=== PATIENT | female | born 1970 | race Caucasian/White ===

== ENCOUNTER 2018-10-24 11:49 | Emergency (ER) | payer OTHER ==
[~2018-10-24] VITALS: Ht 167.6 cm; Wt 59.0 kg
[~2018-10-24 11:49] MED LIST: AZITHROMYCIN 2250 MG PO; BACTRIM DS TAB1 EACH PO; FOLIC ACID1 MG PO; IBUPROFEN 600600 M1 PO; NAPROSYN500 MG PO; NICOTINE TRANSD21 M1 TRANSDERM; NOHOMEMEDICATIONS; PREDNISONE 20 M20 M1 PO; PREDNISONE 20 M20 MG PO; PROMETHAZINE D480 ML PO; TESSALON PERLE100 MG PO; VENTOLIN HFA 1818 GM INH; ZPAK PO
[2018-10-24] MEDS ORDERED: PREDNISONE 20 M20 M1 PO (12:07)
[2018-10-24 12:15] VITALS: BP 166/67
== END 2018-10-24 12:19 | disposition home or self-care (01) ==
LOC: M.ERS 11:49
DX: L30.9 Dermatitis, unspecified (principal)